=== PATIENT | female | born 1950 | race African-American/Black ===

== ENCOUNTER 2018-05-22 23:47 | Emergency (ER) | payer OTHER | END 2018-05-23 01:18 | disposition left against medical advice (07) | LOC: ER 23:47 | DX: Z53.21 Procedure and treatment not carried out due to patient leaving prior to being seen by health care provider (principal) ==

== ENCOUNTER 2018-12-13 20:34 | Emergency (ER) | payer OTHER ==
[~2018-12-13] VITALS: Ht 157.5 cm; Wt 93.0 kg
[2018-12-13] MEDS ORDERED: SODIUM CHLORIDE 0.9% 1,000 ML IV ONE (21:13)
[2018-12-13 22:57] LABS: BASOPHILS % 0.6 % (0.0-2.0); EOSINOPHILS % 0.5 % (0.0-5.0); HEMATOCRIT. 23.9 % (36.0-48.0); HEMOGLOBIN. 7.9 g/dL (12.0-16.0); LYMPHOCYTES % 12.4 % (20.0-50.0); MEAN CORPUSCULAR HEMOGLOBIN 30.5 pg (28.0-32.0); MEAN CORPUSCULAR VOLUME 91.8 fL (81.0-99.0); MONOCYTES % 2.9 % (2.0-8.0); NEUTROPHILS % 83.6 % (40.0-76.0); PLATELET 138 x1000/uL (130-400); RED CELL DISTRIBUTION WIDTH 12.7 % (11.6-14.6)
[2018-12-13 23:03] LABS: INR 1.4; PROTHROMBIN TIME 13.9 sec (9.6-11.0)
[2018-12-13 23:54] LABS: CHLORIDE 108 mEq/L (98-107)
[2018-12-13 23:58] LABS: ETHANOL BLOOD < 10 mg/dL
[2018-12-14 00:02] LABS: LDL CHOLESTEROL 77 mg/dL (5-100)
[2018-12-14] MEDS ORDERED: ASPIRIN 81MG TABLET PO SCH (01:15)
[2018-12-14 04:51] VITALS: BP 132/72
== END 2018-12-14 05:22 | disposition short-term general hospital (02) ==
LOC: ER 20:34 → CANBEDREQ 12-14 05:30
DX: I63.9 Cerebral infarction, unspecified (principal); D64.9 Anemia, unspecified; R47.1 Dysarthria and anarthria; J45.909 Unspecified asthma, uncomplicated; I10 Essential (primary) hypertension
CPT/HCPCS: 36415; 70450; 71045; 80053; 80320; 82465; 82962; 83721; 84484; 85025; 85610; 93005; 99291; J7030; G0480